=== PATIENT | male | born 1960 | race Two or more races ===

== ENCOUNTER 2017-06-29 09:49 | Emergency (ER) | payer BC ==
[~2017-06-29] VITALS: Ht 172.7 cm; Wt 68.0 kg
[2017-06-29 09:52] VITALS: Ht 172.7 cm; Wt 68.0 kg
[2017-06-29 11:34] VITALS: BP 110/73
== END 2017-06-29 11:34 | disposition home or self-care (01) ==
LOC: ED 09:49
DX: R56.9 Unspecified convulsions (principal); R03.0 Elevated blood-pressure reading, without diagnosis of hypertension; S00.83XA Contusion of other part of head, initial encounter; X58.XXXA Exposure to other specified factors, initial encounter; Y93.89 Activity, other specified; Y92.89 Other specified places as the place of occurrence of the external cause; Y99.8 Other external cause status
CPT/HCPCS: J2060